=== PATIENT | female | born 1950 | race Caucasian/White ===

== ENCOUNTER 2018-11-23 00:06 | Emergency (ER) | payer MEDICARE ==
[~2018-11-23] VITALS: Ht 162.6 cm; Wt 59.0 kg
[~2018-11-23 00:06] MED LIST: ASPIRIN325 PO; CENTRUM SILVER1 EAC4 PO; CRESTOR10 MG PO; DIAZEPAM 10 MG10 M1 PO; FISH OIL 1,001000 M2 PO; HYDROCODONE-AP1 EA11 PO; LOVASTATIN PO; OMEPRAZOLE 20 M20 M1 PO; PHENERGAN 25 MG25 M1; PHENERGAN 25 MG25 M1 PO; PRILOSEC 20 MG20 MG; VITAMIN D2000 UNIT PO; ZETIA10 MG PO
[2018-11-23 01:16] VITALS: BP 150/78
== END 2018-11-23 01:18 | disposition home or self-care (01) ==
LOC: M.ERS 00:06
DX: G43.909 Migraine, unspecified, not intractable, without status migrainosus (principal); E78.00 Pure hypercholesterolemia, unspecified; F41.9 Anxiety disorder, unspecified; F32.9 Major depressive disorder, single episode, unspecified; Z88.8 Allergy status to other drugs, medicaments and biological substances; Z91.041 Radiographic dye allergy status; Z88.0 Allergy status to penicillin; Z88.2 Allergy status to sulfonamides; Z85.3 Personal history of malignant neoplasm of breast; Z90.13 Acquired absence of bilateral breasts and nipples

== ENCOUNTER 2020-01-06 04:39 | Observation (INO) | payer MEDICARE, MEDICAID ==
[~2020-01-06] VITALS: Ht 152.4 cm; Wt 87.1 kg
[2020-01-06 04:42] VITALS: BP 198/88
[2020-01-06] MEDS ORDERED: PROTONIX 20 MG20 MG PO (04:54)
[2020-01-06 05:25] LABS: ABSOLUTE EOSINOPHILS 0.2 thou/uL (0.0-0.7); ABSOLUTE LYMPHOCYTES 4.2 thou/uL (0.8-5.3); ABSOLUTE MONOCYTES 0.6 thou/uL (0.0-1.2); ABSOLUTE NEUTROPHILS 2.2 thou/uL (1.6-8.1); BASOPHILS 0.6 %; EOSINOPHILS 2.3 %; HEMATOCRIT 39.2 % (37.0-47.0); HEMOGLOBIN 13.6 gm/dL (12.0-15.0); LYMPHOCYTES 58.3 %; MCH 30.8 pg (26.0-34.0); MCHC 34.8 g/dL (28.0-37.0); MCV 88.7 fL (80.0-100.0); MONOCYTES 8.6 %; MPV 7.4 fl. (7.2-11.1); NUCLEATED RBCS 0 /100WBC; PLATELET COUNT* 190 thou/uL (150-400); POLYS 30.2 %; RBC 4.42 mil/uL (4.20-5.00); RDW-CV 13.6 % (10.5-14.5); WBC 7.2 thou/uL (4.0-11.0)
[2020-01-06 05:30] LABS: CALCIUM 8.8 mg/dL (8.5-10.1); CREATININE 0.8 mg/dL (0.6-1.3); POTASSIUM 3.7 mmol/L (3.5-5.1)
[2020-01-06 05:41] LABS: ALBUMIN 3.8 g/dL (3.4-5.0); TOTAL BILIRUBIN 0.5 mg/dL (<0.1-1.0); TOTAL PROTEIN 7.1 g/dL (6.4-8.2)
[2020-01-06 08:00] VITALS: BP 153/73
[2020-01-06 08:36] VITALS: BP 157/82
[2020-01-06 08:38] LABS: CHOLESTEROL 172 mg/dL (<200); HDL CHOLESTEROL 53 mg/dL (>40); LDL CHOLESTEROL 98 mg/dL (<100); SERUM ASSESSMENT Clear; TC:HDL 3.2 Ratio (Not establshd); TRIGLYCERIDE 108 mg/dL (<150); VLDL 22 mg/dL (<40)
--- NOTE | 2020-01-06 13:49 | EKG ---
[place] [address] ELECTROCARDIOGRAM REPORT Name: LISA KHAN Suzy Room: [address] M.R.#: [id number] Admission: 01/06/20 Attend Phys: Christiano Frederick, Discharge: Date of : 50 Date of Service: 01/06/20 0445 Report #: [id number] THIS REPORT FOR: //name// [facility] ED Test Date: 2020-01-06 Test Time: 04:45:26 Pat Name: LISA KHAN Department: Room: [facility] Gender: F Presser All Around: GENET : 1950 Requested By: Kory Benson Order Number: [id number] MD: Bro Fagan Measurements Intervals [place] Rate: 78 P: 44 RI: 181 QRS: -67 QRSD: 97 T: 51 QT: 405 QTc: 462 Interpretive Statements Sinus rhythm Left anterior fascicular block Abnormal R-wave progression, early transition Compared to ECG 01/31/2017 19:40:53 No significant changes Electronically Signed On 01-06-2020 13:49:15 CDT by Bro Fagan [email or web address] <ELECTRONICALLY SIGNED> By: Bro Fagan MD, [facility] 01/06/20 1349 0445 0445 Bro Fagan MD, [facility] /EPI
--- NOTE | 2020-01-06 14:07 | CON ---
[address] [address] CONSULTATION Name: LISA KHAN Room: [address] Glenn Zamora#: [id number] Admission: 01/06/20 Attend Phys: Christiano Frederick MD Discharge: Date of : 50 Report #: [id number] THIS REPORT FOR: //name// cc: Joseph Ramos MD, Matthew S. MD ~ THIS REPORT FOR: //name// CC: Christiano Ramos DATE OF SERVICE: 01/06/2020 CARDIOLOGY CONSULTATION HISTORY OF PRESENT ILLNESS: The patient is a 69-year-old single white female who I was asked to see in the hospital today after she complained of being short of breath. The patient has no previous history of heart disease. She is not very active at this time. She apparently had a cardiac catheterization years ago at [facility] that showed no significant coronary artery disease. She had a stress test about 5 years ago. She is not very active at this time. She has a history of hyperlipidemia and is followed by ____ at [facility]. Recently, she has been short of breath and had a dry cough. She has felt weak and had no taste. She has had abdominal discomfort. She apparently was tested for coronavirus 2 weeks ago and was negative. However, because of shortness of breath and cough, she came to the Emergency Room this morning and was admitted. She denies any history of chest tightness, arm pain, palpitations, syncope or peripheral edema. PAST MEDICAL HISTORY: She has had previous bilateral mastectomy for breast cancer, sinus surgery, tonsillectomy, cystoscopy. She has a history of migraines. No history of hypertension or diabetes. MEDICATIONS: Include Crestor, Zetia, and Protonix. ALLERGIES: SHE HAS AN ALLERGY TO PENICILLIN. FAMILY HISTORY: Her mother had stent. SOCIAL HISTORY: She is , lives in [place]. She is a retired med tech. No smoking or alcohol abuse. REVIEW OF SYSTEMS: No history of stroke, asthma, liver disease, or kidney disease. She has arthritis in her hands. No chronic skin condition. No psychiatric illness. PHYSICAL EXAMINATION: [place] [address] CONSULTATION Name: LISA KHAN Room: [address]#: [id number] Admission: 01/06/20 Attend Phys: Christiano Frederick MD Discharge: Date of : 50 Report #: [id number] GENERAL: Revealed a middle-aged female, appeared in no distress. VITAL SIGNS: She had a blood pressure of 150/80 and pulse is 68. She was afebrile. HEENT: She was anicteric. Conjunctivae pink. Mucous membranes moist. NECK: Veins do not appear distended. No carotid bruits. Neck supple. CHEST: Clear to auscultation. CARDIOVASCULAR: Regular rate and rhythm without murmur. ABDOMEN: Soft. EXTREMITIES: Had no edema. Dorsalis pedis pulse 2+ bilaterally. SKIN: Cool and dry. NEUROLOGIC: Nonfocal. DIAGNOSTIC DATA: ECG showed a sinus rhythm, left axis, no significant ST or T-wave change. LABORATORY DATA: Creatinine 0.8. Liver function studies were normal. Troponins all 0.06. BNP 50. Her white blood cell count 7.2 and hemoglobin 13.6. Her stat marina test in the Emergency Room was negative. IMAGING DATA: Her chest x-ray in the Emergency Room showed normal heart size, clear lung bryant. IMPRESSION AND RECOMMENDATIONS: 1. Bronchitis. No evidence of pneumonia. Rule out coronavirus. 2. Hyperlipidemia. The patient is followed in [facility]. She is on Crestor and Zetia. 3. History of breast cancer, previous bilateral mastectomy. 4. Arthritis. <ELECTRONICALLY SIGNED> By: Bro Fagan MD, [facility] 01/06/20 1407 0909 [id number] Fagan MD, FAC /nt
[2020-01-06 20:00] VITALS: BP 137/47
[2020-01-07] VITALS: BP 136/52
[2020-01-07 04:00] VITALS: BP 139/63
[2020-01-07 08:00] VITALS: BP 168/65
[2020-01-07 11:07] LABS: GLYCOHEMOGLOBIN (HGB A1C) 5.7 % (4.8-5.6)
[2020-01-07] MEDS ORDERED: REQUIP 1 MG TABL1 M1 PO (11:40)
[2020-01-07] MEDS ORDERED: FLAGYL500 M1 PO (11:40)
[2020-01-07] MEDS ORDERED: AMITRIPTYLINE H10 M3 PO (11:40)
[2020-01-07 13:01] VITALS: BP 156/77
[2020-01-07] MEDS ORDERED: AMITRIPTYLINE H10 M1 PO (13:12)
[2020-01-07 13:18] VITALS: BP 156/77
--- NOTE | 2020-01-07 17:36 | CON ---
[address] [address] CONSULTATION Name: LISA KHAN Room: [address] Glenn Zamora#: [id number] Admission: 01/06/20 Attend Phys: Christiano Frederick MD Discharge: 01/07/20 Date of : 50 Report #: [id number] THIS REPORT FOR: //name// cc: Joseph Ramos MD, Matthew S. MD ~ THIS REPORT FOR: //name// CC: Christiano Ramos MD DICTATED BY: No Kramer [facility] DATE OF SERVICE: 01/07/2020 Please note at the time of this dictation, the patient was seen and physically examined by myself. REASON FOR CONSULTATION: Nausea, vomiting, bloating and some diarrhea. She also was complaining about dysphagia, mainly with solids. ALLERGIES: CONTRAST DYE, DARVON, PENICILLIN, SULFA, IODINE, DOXYCYCLINE AND BOTOX. MEDICATIONS FROM HOME: Aspirin, Zetia, Protonix, which she takes 5/7 days a week, 20 mg. PAST MEDICAL HISTORY: High cholesterol, anxiety, depression and migraine headaches. PAST SURGICAL HISTORY: Bilateral mastectomy secondary to positive HER prophylactically. FAMILY HISTORY: Mother, breast cancer. SOCIAL HISTORY: Denies any alcohol, tobacco or illegal drug use. REVIEW OF SYSTEMS: Twelve-point review of systems is essentially negative except what is mentioned in the HPI. PHYSICAL EXAMINATION: VITAL SIGNS: Temperature 36.9, pulse 77, respirations 16, blood pressure 169/63. HEART: Regular rate and rhythm. LUNGS: Clear. ABDOMEN: Soft, positive bowel sounds in all 4 [place]rants [place] [id number] CONSULTATION Name: LISA KHAN Room: [address] Glenn Zamora#: [id number] Admission: 01/06/20 Attend Phys: Christiano Frederick MD Discharge: 01/07/20 Date of : 50 Report #: [id number] noted in the upper quadrants where she complains of bloating and a lot of flatulence. LABORATORY DATA: Hemoglobin 13.6, white count 7.2, platelets 190. GFR is 71. LFTs are completely normal. Abdominal CT shows gallbladder is mildly prominent, but no ductal dilatation noted and one calcified stone noted. IMPRESSION: 1. Shortness of air. 2. Gas and bloating causing #1. 3. Nausea. 4. Diarrhea. 5. Dysphagia, solids. 6. Gastroesophageal reflux disease. 7. Cholelithiasis noted. 8. Family history of breast cancer in mother. PLAN: 1. Ultrasound pending this a.m. 2. Discussion with the patient that she does not want to stay here for today and is wanting to go home. She is not wanting to do any endoscopic evaluation for her dysphagia at this time and she would prefer to have it done as an outpatient. The patient had a negative Cologuard last fall. 3. We will go ahead and start treating her for possible small bowel bacterial overgrowth with some Flagyl 500 mg 1 tablet t.i.d. for 3 weeks and we will put a script on her chart for this if she goes home. Otherwise, she can follow up with us in 4-6 weeks and we would look at getting her scheduled for an EGD at that time. Thank you for allowing us to participate in this patient's care. Please do not hesitate to call with any questions in regard to this consult. <ELECTRONICALLY SIGNED> By: Kunal Garcia DO 01/07/20 1736 0948 [id number] Garcia DO /nt
== END 2020-01-07 14:10 | disposition home or self-care (01) ==
LOC: M.ERS 04:39 → M.2W 06:22 → M.TBA-ER 06:22 → M.2W 08:38
PROVIDERS: Emergency Medicine Emergency Medical Services; Internal Medicine; ADMIT Internal Medicine; ATTEND Internal Medicine
DX: J96.01 Acute respiratory failure with hypoxia (principal); R53.81 Other malaise; R11.2 Nausea with vomiting, unspecified; R07.89 Other chest pain; E78.5 Hyperlipidemia, unspecified; G43.909 Migraine, unspecified, not intractable, without status migrainosus; F41.9 Anxiety disorder, unspecified; F32.9 Major depressive disorder, single episode, unspecified; R73.9 Hyperglycemia, unspecified; Z79.82 Long term (current) use of aspirin; Z79.899 Other long term (current) drug therapy; Z85.3 Personal history of malignant neoplasm of breast; Z90.10 Acquired absence of unspecified breast and nipple; Z20.828 Contact with and (suspected) exposure to other viral communicable diseases